=== PATIENT | female | born 1985 | race American Indian/Alaskan Native ===

== ENCOUNTER 2016-08-07 16:59 | Emergency (ER) | payer SELFPAY ==
[2016-08-07] MEDS ORDERED: AMIDATE IV ONE ×3 (19:20→21:29)
--- NOTE | 2016-08-07 19:41 | Emergency Department Report ---
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 No other symptoms. Mode of arrival: private car Source: Patient Began: Just prior to admission Duration: Continuous Context: See above Quality: Sharp Severity: 10 out of 10 Improved with: Holding still Worsened with: Movement Associated signs and symptoms: No numbness or tingling ED Past Medical Hx - Past Medical History Previous Medical History?: Yes Additional medical history: Right Shoulder Dislocation - Surgical History Past Surgical History?: No - Social History Smoking Status: Current Every Day Smoker Substance Use Type: Alcohol - Medications Home Medications: Home Medications Medication Instructions Recorded Confirmed Last Taken Type oxyCODONE /ACETAMINOPHEN [Percocet 1 tab PO Q6HR PRN #14 tablet 08/20/15 Unknown Rx 5/325] HYDROcodone/APAP 5-325 [[place] 1 each PO Q6HR PRN #10 tablet 08/07/16 Unknown Rx 5/325] ED Review of Systems ROS: Stated complaint: POSS DISLOCATED RT SHOULDER Other details as noted in HPI ROS Constitutional: No fever ENT: No uri symptoms Cardiovascular: No chest pain Respiratory: No sob or cough GI: No nausea vomiting or diarrhea : No dysuria frequency or urgency, Skin: No rash Neuro: No focal weakness or numbness Psych: No depression Donny/lymph: No edema Physical Exam - Physical Exam Vital Signs: Vital Signs 08/07/16 17:52 Temperature 98.2 F Pulse Rate 72 Respiratory 18 Rate Blood Pressure 158/85 O2 Sat by Pulse 100 Oximetry Physical Exam: GENERAL: The patient is well-developed well-nourished . HEENT: Normocephalic. Atraumatic. Extraocular motions are intact. Patient has moist mucous membranes. NECK: Supple. No meningitic signs are noted. There is no adenopathy noted. CHEST/LUNGS: Clear to auscultation. There is no respiratory distress noted. HEART/CARDIOVASCULAR: Regular. There is no tachycardia. There is no gallop rub or murmur. ABDOMEN: Abdomen is soft, nontender. Patient has normal bowel sounds. There is no abdominal distention. SKIN: There is no rash. There is no edema. There is no diaphoresis. NEURO: The patient is awake, alert, and oriented. The patient is cooperative. The patient has no focal neurologic deficits. The patient has normal speech. MUSCULOSKELETAL: Obvious dislocation to patient's right shoulder ED Course Vital Signs 08/07/16 17:52 Temperature 98.2 F Pulse Rate 72 Respiratory 18 Rate Blood Pressure 158/85 O2 Sat by Pulse 100 Oximetry - Reevaluation(s) Reevaluation #1: 08/07/16 19:40 Shoulder was reduced using etomidate without problem. Patient urged to follow- up with an orthopedist for more permanent solution to her recurrent dislocations. - Moderate Sedation Indications: fracture/dislocation redu ASA Class: I Mallampati Airway Score: 1 Preparation: monitoring analyst applied, pulse oximeter, capnometry used, supplemental O2 applied, suction/airway equipment at bedside, IV secured IV Etomidate Dose (mgs): 13 Complications: none Patient Tolerated Procedure: well - Orthopedic Joint Reduction Joint #1 Time Out Performed: Yes Side: right Joint Reduction Location: shoulder Analgesia: moderate sedation Shoulder Technique Used (if applicable): traction/counter-traction Post-Reduction Neuro Exam: intact Post-Reduction Vascular Exam: intact Post Reduction X-Ray Obtained: Yes Post Reduction X-Ray Results: reduced Splint Applied: Yes Patient Tolerated Procedure: well, no complications Critical care attestation.: If time is entered above; I have spent that time in minutes in the direct care of this critically ill patient, excluding procedure time. ED Disposition Clinical Impression: Shoulder dislocation, recurrent Qualifiers: Laterality: right Qualified Code(s): M24.411 - Recurrent dislocation, right shoulder Disposition: DISCHARGED TO HOME OR SELFCARE Is pt being admited?: No Does the pt Need Aspirin: No Condition: Stable Instructions: Shoulder Dislocation (ED) Prescriptions: HYDROcodone/APAP 5-325 [[place] 5/325] 1 each PO Q6HR PRN #10 tablet PRN Reason: Pain Referrals: ANGELIQUE RUSHING MD [Staff Physician] - 3-5 Days Time of Disposition: 19:43
[2016-08-07 21:22] VITALS: BP 151/79
--- NOTE | 2016-08-08 08:37 | XRay Report ---
Right shoulder: There is anterior subluxation of the humerus head. No fracture deformity is noted. The bones are well-mineralized.
--- NOTE | 2016-08-08 08:37 | XRay Report ---
Right shoulder: An AP view of the humerus demonstrates reduction of the anterior dislocation which currently appears in good alignment. No fracture deformity noted.
== END 2016-08-07 20:18 | disposition home or self-care (01) ==
LOC: ED 16:59
DX: M24.411 Recurrent dislocation, right shoulder (principal); F17.200 Nicotine dependence, unspecified, uncomplicated; X58.XXXA Exposure to other specified factors, initial encounter; Y93.89 Activity, other specified; Y99.9 Unspecified external cause status; Y92.89 Other specified places as the place of occurrence of the external cause
CPT/HCPCS: 81025; 96374

== ENCOUNTER 2017-05-29 10:35 | Emergency (ER) | payer MEDICAID ==
[2017-05-29 11:04] VITALS: BP 114/75
== END 2017-05-29 13:27 | disposition left against medical advice (07) ==
LOC: ED 10:35
DX: R10.9 Unspecified abdominal pain (principal); Z53.21 Procedure and treatment not carried out due to patient leaving prior to being seen by health care provider

== ENCOUNTER 2018-07-18 03:45 | Emergency (ER) | payer MEDICAID ==
[2018-07-18] MEDS ORDERED: ASPIRIN PO ONE (04:06)
[2018-07-18 04:45] LABS: Basophils # (Auto) 0.1 K/mm3 (0.0-0.1); Basophils % (Auto) 0.7 % (0.0-1.8); Eosinophils # (Auto) 0.1 K/mm3 (0.0-0.4); Eosinophils % (Auto) 1.7 % (0.0-4.3); Hematocrit 39.1 % (30.3-42.9); Lymphocytes # (Auto) 2.6 K/mm3 (1.2-5.4); Lymphocytes % (Auto) 36.5 % (13.4-35.0); Mean Corpuscular HGB Conc 33 % (30-34); Mean Corpuscular Volume 89 fl (79-97); Monocytes # (Auto) 0.5 K/mm3 (0.0-0.8); Monocytes % (Auto) 7.5 % (0.0-7.3); Platelet Count 332 K/mm3 (140-440); Red Cell Distribution Width 13.9 % (13.2-15.2)
--- NOTE | 2018-07-18 05:05 | Emergency Department Report ---
<ROSALIO SILVA - Last Filed: 07/18/18 04:58> ED General Adult HPI - General Chief complaint: Chest Pain Stated complaint: CHEST PAIN DIZZINESS CHILLS Time Seen by Provider: 07/18/18 04:58 Source: patient Mode of arrival: Ambulatory Limitations: No Limitations - History of Present Illness Initial comments: 32-year-old -Citizen Of [place] female comes in complaining of chest pain shortness of breathing and dizziness for over a week. Patient reports she gets too hot at work and feels like she is going to pass out. Patient reports to me that she did use ecstasy over the weekend for the first time and she feels that this is worse making her feel uncomfortable. 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 Patient denies any nausea vomiting today and denies any radiation of chest pain to jaw and neck or arm. -: week(s) (1) Location: chest Radiation: non-radiation Severity scale (0 -10): 8 Consistency: intermittent Worsens with: none Associated Symptoms: chest pain. denies: nausea/vomiting Treatments Prior to Arrival: none - Related Data Previous Rx's Medication Instructions Recorded Last Taken Type oxyCODONE /ACETAMINOPHEN [Percocet 1 tab PO Q6HR PRN #14 tablet 08/20/15 Unknown Rx 5/325] HYDROcodone/APAP 5-325 [[place] 1 each PO Q6HR PRN #10 tablet 08/07/16 Unknown Rx 5/325] Ibuprofen [Motrin 600 MG tab] 600 mg PO Q8H PRN #21 tablet 07/18/18 Unknown Rx Allergies Allergy/AdvReac Type Severity Reaction Status Date / Time No Known Allergies Allergy Verified 05/29/17 11:00 ED Review of Systems Comment: All other systems reviewed and negative Cardiovascular: chest pain Gastrointestinal: denies: abdominal pain, nausea, diarrhea Genitourinary: denies: urgency, dysuria, discharge Musculoskeletal: denies: back pain, joint swelling, arthralgia Skin: denies: rash, lesions Neurological: other (dizziness) ED Past Medical Hx - Past Medical History Previous Medical History?: No Additional medical history: Right Shoulder Dislocation - Surgical History Past Surgical History?: No - Social History Smoking Status: Never Smoker Substance Use Type: None - Medications Home Medications: Home Medications Medication Instructions Recorded Confirmed Last Taken Type oxyCODONE /ACETAMINOPHEN [Percocet 1 tab PO Q6HR PRN #14 tablet 08/20/15 Unknown Rx 5/325] HYDROcodone/APAP 5-325 [[place] 1 each PO Q6HR PRN #10 tablet 08/07/16 Unknown Rx 5/325] Ibuprofen [Motrin 600 MG tab] 600 mg PO Q8H PRN #21 tablet 07/18/18 Unknown Rx ED Physical Exam - General Limitations: No Limitations General appearance: alert, in no apparent distress - Head Head exam: Present: atraumatic, normocephalic - Eye Eye exam: Present: normal appearance - ENT ENT exam: Present: mucous membranes moist - Neck Neck exam: Present: normal inspection - Respiratory Respiratory exam: Present: normal lung sounds bilaterally. Absent: respiratory distress - Cardiovascular Cardiovascular Exam: Present: regular rate, normal rhythm. Absent: systolic murmur, diastolic murmur, rubs, gallop - GI/Abdominal GI/Abdominal exam: Present: soft, normal bowel sounds - Extremities Exam Extremities exam: Present: normal inspection - Back Exam Back exam: Present: normal inspection - Neurological Exam Neurological exam: Present: alert, oriented X3 - Psychiatric Psychiatric exam: Present: normal affect, normal mood - Skin Skin exam: Present: warm, dry, intact, normal color. Absent: rash ED Medical Decision Making - Lab Data Result diagrams: 07/18/18 04:11 - Radiology Data Radiology results: report reviewed Patient: RITA ALCANTAR MR#: [id number] : 1985 Acct:[id number] Age/Sex: 32 / F ADM Date: 07/18/18 Loc: ED Attending Dr: Ordering Physician: ALDAIR HUITRON Date of Service: 07/18/18 Procedure(s): XR chest routine 2V Accession Number(s): [id number] cc: ALDAIR HUITRON Fluoro Time In Minutes: PROCEDURE: XR CHEST ROUTINE 2V TECHNIQUE: PA and lateral chest radiographs HISTORY: chest pain with shortness of breath COMPARISONS: FINDINGS: No mediastinal shift. Cardiac silhouette is not enlarged. No pneumothorax, effusion, or focal pulmonary opacity. No acute skeletal finding. IMPRESSION: No focal pulmonary opacity. This document is electronically signed by Kaleb Pimentel MD., July 18 2018 06:50:52 AM ET Transcribed By: KEVIN Dictated By: KALEB PIMENTEL MD Electronically Authenticated By: KALEB PIMENTEL MD Signed Date/Time: 07/18/18652 DD/ 8 TD/TT: 07/18/18648 ED Disposition Clinical Impression: Chest pain Qualifiers: Chest pain type: unspecified Qualified Code(s): R07.9 - Chest pain, unspecified Disposition: - TO HOME OR SELFCARE Is pt being admited?: No Does the pt Need Aspirin: No Condition: Stable Instructions: Chest Pain (ED), Cannabis Abuse (ED) Additional Instructions: These take pain medication as prescribed. Please follow up with her primary care provider if you do not have one I have listed one below for your convenience. Return to the emergency room if short of breath, palpitations, increased chest pain, or dizziness. Prescriptions: Ibuprofen [Motrin 600 MG tab] 600 mg PO Q8H PRN #21 tablet PRN Reason: Pain , Severe (7-10) Referrals: [facility] [Provider Group] - 3-5 Days [facility] [Outside] - 3-5 Days [facility] [Outside] - 3-5 Days Forms: Work/School Release Form(ED) <KALANI ALEXANDER - Last Filed: 07/18/18 08:27> ED Review of Systems ROS: Stated complaint: CHEST PAIN DIZZINESS CHILLS Other details as noted in HPI ED Physical Exam - Respiratory Respiratory exam: Absent: chest wall tenderness ED Course Vital Signs 07/18/18 07/18/18 07/18/18 04:03 04:22 06:24 Temperature 97.5 F L 98.2 F Pulse Rate 91 H 66 Respiratory 18 16 16 Rate Blood Pressure 147/92 Blood Pressure 132/71 [Left] O2 Sat by Pulse 97 98 100 Oximetry ED Medical Decision Making - Lab Data Result diagrams: 07/18/18 04:11 07/18/18 04:11 Lab Results 07/18/18 07/18/18 07/18/18 Range/Units 04:11 04:11 05:03 WBC 7.0 (4.5-11.0) K/mm3 RBC 4.40 (3.65-5.03) M/mm3 Hgb 13.0 (10.1-14.3) gm/dl Hct 39.1 (30.3-42.9) % MCV 89 (79-97) fl MCH 29 (28-32) pg MCHC 33 (30-34) % RDW 13.9 (13.2-15.2) % Plt Count 332 (140-440) K/mm3 Lymph % (Auto) 36.5 H (13.4-35.0) % [place] % (Auto) 7.5 H (0.0-7.3) % Eos % (Auto) 1.7 (0.0-4.3) % Baso % (Auto) 0.7 (0.0-1.8) % Lymph # 2.6 (1.2-5.4) K/mm3 [place] # 0.5 (0.0-0.8) K/mm3 Eos # 0.1 (0.0-0.4) K/mm3 Baso # 0.1 (0.0-0.1) K/mm3 Seg Neutrophils % 53.6 (40.0-70.0) % Seg Neutrophils # 3.8 (1.8-7.7) K/mm3 Sodium 138 (137-145) mmol/L Potassium 3.6 (3.6-5.0) mmol/L Chloride 103.8 (98-107) mmol/L Carbon Dioxide 21 L (22-30) mmol/L Anion Gap 17 mmol/L BUN 12 (7-17) mg/dL Creatinine 0.6 L (0.7-1.2) mg/dL Estimated GFR > 60 ml/min BUN/Creatinine Ratio 20 % Glucose 87 (65-100) mg/dL Calcium 8.8 (8.4-10.2) mg/dL Troponin T < 0.010 (0.00-0.029) ng/mL Urine Color Straw (Yellow) Urine Turbidity Clear (Clear) Urine pH 6.0 (5.0-7.0) Ur Specific [place] 1.008 (1.003-1.030) Urine Protein <15 mg/dl (Negative) mg/dL Urine Glucose (UA) Neg (Negative) mg/dL Urine Ketones Neg (Negative) mg/dL Urine Blood Neg (Negative) Urine Nitrite Neg (Negative) Urine Bilirubin Neg (Negative) Urine Urobilinogen < 2.0 (<2.0) mg/dL Ur Leukocyte Esterase Neg (Negative) Urine WBC (Auto) 1.0 (0.0-6.0) /HPF Urine RBC (Auto) 1.0 (0.0-6.0) /HPF U Epithel Cells (Auto) 4.0 (0-13.0) /HPF Urine Mucus Few /HPF Urine Opiates Screen Urine Methadone Screen Ur Barbiturates Screen Ur Phencyclidine Scrn Ur Amphetamines Screen U Benzodiazepines Scrn Urine Cocaine Screen U Marijuana (THC) Screen Drugs of Abuse Note 07/18/18 07/18/18 Range/Units 05:03 05:21 WBC (4.5-11.0) K/mm3 RBC (3.65-5.03) M/mm3 Hgb (10.1-14.3) gm/dl Hct (30.3-42.9) % MCV (79-97) fl MCH (28-32) pg MCHC (30-34) % RDW (13.2-15.2) % Plt Count (140-440) K/mm3 Lymph % (Auto) (13.4-35.0) % [place] % (Auto) (0.0-7.3) % Eos % (Auto) (0.0-4.3) % Baso % (Auto) (0.0-1.8) % Lymph # (1.2-5.4) K/mm3 [place] # (0.0-0.8) K/mm3 Eos # (0.0-0.4) K/mm3 Baso # (0.0-0.1) K/mm3 Seg Neutrophils % (40.0-70.0) % Seg Neutrophils # (1.8-7.7) K/mm3 Sodium (137-145) mmol/L Potassium (3.6-5.0) mmol/L Chloride (98-107) mmol/L Carbon Dioxide (22-30) mmol/L Anion Gap mmol/L BUN (7-17) mg/dL Creatinine (0.7-1.2) mg/dL Estimated GFR ml/min BUN/Creatinine Ratio % Glucose (65-100) mg/dL Calcium (8.4-10.2) mg/dL Troponin T < 0.010 (0.00-0.029) ng/mL Urine Color (Yellow) Urine Turbidity (Clear) Urine pH (5.0-7.0) Ur Specific [place] (1.003-1.030) Urine Protein (Negative) mg/dL Urine Glucose (UA) (Negative) mg/dL Urine Ketones (Negative) mg/dL Urine Blood (Negative) Urine Nitrite (Negative) Urine Bilirubin (Negative) Urine Urobilinogen (<2.0) mg/dL Ur Leukocyte Esterase (Negative) Urine WBC (Auto) (0.0-6.0) /HPF Urine RBC (Auto) (0.0-6.0) /HPF U Epithel Cells (Auto) (0-13.0) /HPF Urine Mucus /HPF Urine Opiates Screen Presumptive negative Urine Methadone Screen Presumptive negative Ur Barbiturates Screen Presumptive negative Ur Phencyclidine Scrn Presumptive negative Ur Amphetamines Screen Presumptive negative U Benzodiazepines Scrn Presumptive negative Urine Cocaine Screen Presumptive negative U Marijuana (THC) Screen Presumptive positive Drugs of Abuse Note Disclamer - EKG Data -: No EKG Interpreted by Me (EKG interpreted by the attending) EKG shows normal: sinus rhythm (sinus arrhythmia) - Medical Decision Making This patient was received from ALDAIR Silva pending chest x-ray. Chest x-ray negative for acute cardiopulmonary findings. Troponins negative 2, UDT positive for marijuana, and all other labs are unremarkable. Start ibuprofen 600 mg 3 times a day for pain. Provided information on cannabis abuse. Referral to primary care for further evaluation. Patient discharged home stable. Critical care attestation.: If time is entered above; I have spent that time in minutes in the direct care of this critically ill patient, excluding procedure time. ED Disposition Time of Disposition: 07:42
[2018-07-18 05:07] LABS: BUN/Creatinine Ratio 20; Blood Urea Nitrogen 12 mg/dL (7-17); Calcium 8.8 mg/dL (8.4-10.2); Hemolysis Index 7
[2018-07-18 05:32] LABS: Bilirubin,Urine NEG (Negative); Blood,Urine NEG (Negative); Color,Urine Straw (Yellow); Mucus,Urine FEW /HPF; Protein,Urine <15 mg/dL mg/dL (Negative); Urobilinogen,Urine < 2.0 mg/dL (<2.0)
[2018-07-18 05:36] LABS: Amphetamine Screen,Urine PRESUMPTIVE NEGATIVE; Benzodiazepines Screen,Urine PRESUMPTIVE NEGATIVE; Cocaine Screen,Urine PRESUMPTIVE NEGATIVE; Methadone Screen,Urine PRESUMPTIVE NEGATIVE; Opiate Screen,Urine PRESUMPTIVE NEGATIVE
[2018-07-18 05:48] LABS: Cannabinoid Screen,Urine PRESUMPTIVE POSITIVE
[2018-07-18] MEDS ORDERED: IBUPROFEN PO ONE ×2 (06:22→06:25)
[2018-07-18 06:25] VITALS: BP 132/71
--- NOTE | 2018-07-18 06:53 | XRay Report ---
PROCEDURE: XR CHEST ROUTINE 2V TECHNIQUE: PA and lateral chest radiographs HISTORY: chest pain with shortness of breath COMPARISONS: FINDINGS: No mediastinal shift. Cardiac silhouette is not enlarged. No pneumothorax, effusion, or focal pulmo nary opacity. No acute skeletal finding. IMPRESSION: No focal pulmonary opacity. This document is electronically signed by Kaleb Knapp MD., July 18 2018 06:50:52 AM ET
== END 2018-07-18 08:35 | disposition home or self-care (01) ==
LOC: ED 03:45
DX: R07.89 Other chest pain (principal); R06.02 Shortness of breath; R42 Dizziness and giddiness
CPT/HCPCS: 36415; 71046; 80048; 80307; 81001; 84484; 85025; 93005; 93010